=== PATIENT | male | born 1965 | race Caucasian/White ===

== ENCOUNTER 2023-04-24 16:53 | Inpatient (IN) | payer OTHER, MEDICAID ==
[~2023-04-24] VITALS: Ht 170.2 cm; Wt 60.5 kg
[2023-04-24 18:22] LABS: BASOPHILS % (AUTO) 0.6 % (0-1); EOSINOPHILS # (AUTO) 0.1 X10'3 (0-0.9); EOSINOPHILS % (AUTO) 1.1 % (0-6); HEMATOCRIT 43.9 % (42.0-52.0); HEMOGLOBIN 15.1 g/dl (14.0-17.9); LYMPHOCYTES # (AUTO) 1.6 X10'3 (1.1-4.8); LYMPHOCYTES % (AUTO) 20.2 % (21-51); MEAN CORPUSCULAR HGB CONC 34.4 g/dL (33.0-36.5); MEAN CORPUSCULAR VOLUME 93.1 FL (78-98); MONOCYTES # (AUTO) 0.8 X10'3 (0-0.9); MONOCYTES % (AUTO) 10.1 % (2-12); NEUTROPHILS # (AUTO) 5.3 X10'3 (1.8-7.7); PLATELET COUNT 197 X10'3 (140-440); RED BLOOD COUNT 4.71 X10'6 (4.70-6.10); RED CELL DISTRIBUTION WIDTH 13.8 % (11.5-14.5); WHITE BLOOD COUNT 7.8 X10'3 (4.5-11.0)
[2023-04-24 19:24] LABS: ALANINE AMINOTRANSFERASE 27 U/L (12-78); ALBUMIN 3.6 G/DL (3.4-5.0); ALBUMIN/GLOBULIN RATIO 0.9 (1.1-1.5); ALKALINE PHOSPHATASE 73 IU/L (46-116); ANION GAP 7 (8-16); ASPARTATE AMINO TRANSFERASE 20 U/L (10-37); BILIRUBIN,TOTAL 0.3 MG/DL (0.1-1.0); BLOOD UREA NITROGEN 17 MG/DL (7-18); BUN/CREATININE RATIO 19.1 (10.0-20.0); CALCIUM 8.7 MG/DL (8.5-10.1); CHLORIDE 102 MMOL/L (99-107); CREATININE 0.89 MG/DL (0.60-1.10); GLUCOSE 91 MG/DL (70-104); POTASSIUM 3.7 MMOL/L (3.5-5.1); SODIUM 139 MMOL/L (135-145); TOTAL CARBON DIOXIDE 30.1 MMOL/L (24-32); TOTAL PROTEIN 7.5 G/DL (6.4-8.2); eCRCL 76 ML/MIN; eGFR 87 ML/MIN
[2023-04-24 19:35] LABS: ETHANOL < 10 MG/DL (<10)
[2023-04-24] MEDS ORDERED: magnesium 2GM in 50ml NS 50 ML IV PRN (23:30)
[2023-04-24] MEDS ORDERED: acetaminophen 325mg tablet PO PRN (23:30)
[2023-04-24] MEDS ORDERED: magnesium 4gm in 100ml NS 100 ML IV PRN (23:30)
[2023-04-24] MEDS: normal saline 1000ml 1,000 ML IV SCH (23:30)
[2023-04-24] MEDS ORDERED: potassium Cl 20 mEq SR tablet PO PRN ×2 (23:30)
[2023-04-24] MEDS ORDERED: magnesium Cl slow-release 64mg tablet PO PRN (23:30)
[2023-04-24] MEDS ORDERED: ondansetron/PF 4mg/2ml inj IV PRN (23:30)
[2023-04-24] MEDS ORDERED: potassium Cl 40MEQ/1/2NS 520ml 520 ML IV PRN (23:30)
[2023-04-24] MEDS ORDERED: IOHEXOL 12MG/ML oral solution 500 ML BOTTLE PO ONE (23:35)
[2023-04-25 01:48] LABS: BILIRUBIN,URINE NEGATIVE (Neg); CLARITY,URINE CLEAR (Clear); COLOR,URINE YELLOW (Yellow); GLUCOSE, URINE NEGATIVE (Neg); KETONES,URINE NEGATIVE (Neg); LEUKOCYTE ESTERASE ,URINE NEGATIVE (Neg); NITRITES, URINE NEGATIVE (Neg); OCCULT BLOOD,URINE NEGATIVE (Neg); PROTEIN,URINE NEGATIVE (Neg); UROBILINOGEN,URINE 0.2 E.U/dL (0.2-1.0)
[2023-04-25 01:54] LABS: UA COLLECTION TYPE CLN CATCH MIDSTREAM
[2023-04-25 02:03] LABS: URINE AMPHETAMINE SCREEN NEGATIVE (Neg); URINE BARBITUATE SCREEN NEGATIVE (Neg); URINE BENZODIAZEPINES SCREEN NEGATIVE (Neg); URINE CANNABINOID SCREEN NEGATIVE (Neg); URINE COCAINE SCREEN NEGATIVE (Neg); URINE METHADONE SCREEN NEGATIVE (Neg); URINE OPIATE SCREEN NEGATIVE (Neg); URINE PHENCYCLIDINE SCREEN NEGATIVE (Neg)
[2023-04-25 04:42] LABS: BASOPHILS # (AUTO) 0.1 X10'3 (0-0.2); EOSINOPHILS # (AUTO) 0.1 X10'3 (0-0.9); EOSINOPHILS % (AUTO) 1.8 % (0-6); HEMATOCRIT 41.5 % (42.0-52.0); HEMOGLOBIN 14.1 g/dl (14.0-17.9); LYMPHOCYTES # (AUTO) 1.7 X10'3 (1.1-4.8); LYMPHOCYTES % (AUTO) 29.5 % (21-51); MEAN CORPUSCULAR HEMOGLOBIN 31.8 PG (27.0-31.0); MEAN CORPUSCULAR VOLUME 93.6 FL (78-98); MEAN PLATELET VOLUME 10.3 FL (7.4-10.4); MONOCYTES # (AUTO) 0.5 X10'3 (0-0.9); MONOCYTES % (AUTO) 9.5 % (2-12); NEUTROPHILS # (AUTO) 3.3 X10'3 (1.8-7.7); NEUTROPHILS % (AUTO) 58.2 % (42-75); PLATELET COUNT 171 X10'3 (140-440); RED BLOOD COUNT 4.44 X10'6 (4.70-6.10); RED CELL DISTRIBUTION WIDTH 13.6 % (11.5-14.5); WHITE BLOOD COUNT 5.8 X10'3 (4.5-11.0)
[2023-04-25 04:49] LABS: ANION GAP 4 (8-16); BLOOD UREA NITROGEN 17 MG/DL (7-18); BUN/CREATININE RATIO 19.8 (10.0-20.0); CALCIUM 8.4 MG/DL (8.5-10.1); CHLORIDE 104 MMOL/L (99-107); CREATININE 0.86 MG/DL (0.60-1.10); GLUCOSE 116 MG/DL (70-104); MAGNESIUM 2.1 MG/DL (1.5-2.4); POTASSIUM 3.6 MMOL/L (3.5-5.1); SODIUM 138 MMOL/L (135-145); TOTAL CARBON DIOXIDE 29.8 MMOL/L (24-32); eCRCL 79 ML/MIN; eGFR > 90 ML/MIN
[2023-04-25] MEDS ORDERED: IOHEXOL 12MG/ML oral solution 500 ML BOTTLE PO ONE (07:00)
[2023-04-25] MEDS: K and/or MAG REPLACEMENT MC SCH ×2 (07:48→20:00)
[2023-04-25] MEDS: docusate sod 100mg capsule PO SCH ×2 (08:00→20:51)
[2023-04-25 09:06] VITALS: BP 141/87; PULSE 78; RESP 6; TEMP 97.7; O2SAT 98
[2023-04-25 09:06] LABS: THYROID STIMULATING HORMONE 1.92 ulU/ml (0.34-4.50)
[2023-04-25] MEDS: normal saline 1000ml 1,000 ML IV SCH ×2 (09:30→20:50)
[2023-04-25] MEDS ORDERED: iohexol 300mg/ml 100ml inj. ONE (11:56)
[2023-04-25 12:00] VITALS: BP_SYST 135; BP_SYST 144; BP_SYST 145; BP_DIAS 68; BP_DIAS 74; BP_DIAS 78; PULSE 69; PULSE 70; PULSE 75; RESP 20; TEMP 97.9; O2SAT 99
[2023-04-25 18:00] VITALS: BP_SYST 119; BP_SYST 125; BP_SYST 135; BP_DIAS 75; BP_DIAS 77; BP_DIAS 80; BP_DIAS 83; PULSE 65; PULSE 66; PULSE 68; PULSE 81; RESP 14; TEMP 97.6; O2SAT 98
[2023-04-25] MEDS ORDERED: LORazepam 0.5 MG tablet PO PRN (18:20)
[2023-04-25 19:50] VITALS: RESP 16; O2SAT 98
[2023-04-25 22:00] VITALS: BP 119/64; PULSE 66; RESP 16; TEMP 98.2; O2SAT 100
[2023-04-26] MEDS: normal saline 1000ml 1,000 ML IV SCH (05:30)
[2023-04-26 06:00] VITALS: BP 112/73; PULSE 69; RESP 19; TEMP 98; O2SAT 99
[2023-04-26 06:51] LABS: ALBUMIN 3.1 G/DL (3.4-5.0); ANION GAP 8 (8-16); BLOOD UREA NITROGEN 12 MG/DL (7-18); BUN/CREATININE RATIO 12.4 (10.0-20.0); CALCIUM 8.5 MG/DL (8.5-10.1); CHLORIDE 104 MMOL/L (99-107); CREATININE 0.97 MG/DL (0.60-1.10); GLUCOSE 108 MG/DL (70-104); POTASSIUM 4.4 MMOL/L (3.5-5.1); SODIUM 140 MMOL/L (135-145); TOTAL CARBON DIOXIDE 28.4 MMOL/L (24-32); eCRCL 70 ML/MIN; eGFR 79 ML/MIN
[2023-04-26 06:57] LABS: BASOPHILS # (AUTO) 0.1 X10'3 (0-0.2); BASOPHILS % (AUTO) 0.9 % (0-1); EOSINOPHILS # (AUTO) 0.1 X10'3 (0-0.9); HEMOGLOBIN 13.9 g/dl (14.0-17.9); LYMPHOCYTES # (AUTO) 1.5 X10'3 (1.1-4.8); LYMPHOCYTES % (AUTO) 26.5 % (21-51); MEAN CORPUSCULAR HEMOGLOBIN 31.6 PG (27.0-31.0); MEAN CORPUSCULAR HGB CONC 33.8 g/dL (33.0-36.5); MEAN CORPUSCULAR VOLUME 93.3 FL (78-98); MEAN PLATELET VOLUME 10.4 FL (7.4-10.4); MONOCYTES # (AUTO) 0.6 X10'3 (0-0.9); MONOCYTES % (AUTO) 10.4 % (2-12); NEUTROPHILS # (AUTO) 3.3 X10'3 (1.8-7.7); NEUTROPHILS % (AUTO) 60.2 % (42-75); PLATELET COUNT 166 X10'3 (140-440); RED BLOOD COUNT 4.39 X10'6 (4.70-6.10); RED CELL DISTRIBUTION WIDTH 13.5 % (11.5-14.5); WHITE BLOOD COUNT 5.5 X10'3 (4.5-11.0)
[2023-04-26] MEDS: K and/or MAG REPLACEMENT MC SCH (08:00)
[2023-04-26] MEDS: docusate sod 100mg capsule PO SCH (08:00)
[2023-04-26 10:00] VITALS: BP_SYST 109; BP_SYST 125; BP_SYST 130; BP_DIAS 71; BP_DIAS 73; BP_DIAS 75; BP_DIAS 80; PULSE 78; PULSE 81; PULSE 87; RESP 15; TEMP 98; O2SAT 98
[2023-04-26] MEDS ORDERED: SERT25TA PO (13:55)
== END 2023-04-26 15:50 | disposition home or self-care (01) | DRG 948 ==
LOC: ER 16:55 → ED HOLD 23:33 → EDBEDREQ 04-25 07:12 → ORTHO 4S 04-25 08:34
PROVIDERS: ADMIT Internal Medicine; ATTEND Family Medicine
PROC: BW251ZZ Computerized Tomography (CT Scan) of Chest, Abdomen and Pelvis using Low Osmolar Contrast (ICD-10-PCS; principal; 2023-04-25)
DX: R53.1 Weakness (principal); T74.91XA Unspecified adult maltreatment, confirmed, initial encounter; E46 Unspecified protein-calorie malnutrition; F43.10 Post-traumatic stress disorder, unspecified; R41.0 Disorientation, unspecified; R45.89 Other symptoms and signs involving emotional state; R26.81 Unsteadiness on feet; F41.1 Generalized anxiety disorder; R62.7 Adult failure to thrive; Z68.20 Body mass index [BMI] 20.0-20.9, adult; Z82.0 Family history of epilepsy and other diseases of the nervous system
CPT/HCPCS: 36415; 70450; 70551; 71045; 71260; 74177; 80048; 80053; 80305; 80320; 81003; 82140; 82948; 83735; 84443; 84484; 85025; 87081; 93005; 93306; 99285; G0378; J3490; J7030; Q9967